=== PATIENT | male | born 2000 | race Caucasian/White ===

== ENCOUNTER 2021-12-30 10:00 | Day surgery (SDC) | payer OTHER, SELFPAY ==
[~2021-12-30 10:00] MED LIST: Dexamethasone 20 MG/5 ML VIAL ONE; Glycopyrrolate 0.2 MG/ML 5 ML SYRINGE ONE; Neostigmine Methylsulfate 3 MG/3 ML SYRINGE ONE; Ondansetron PF 4 MG/2 ML Vial ONE; PROPOFOL 200 MG/20 ML VIAL ONE; Rocuronium Bromide 10 MG/ML (10ML VIAL) ONE; Succinylcholine 200 MG/10 ml SYRINGE FS ONE; ePHEDrine 50 MG/ML VIAL ONE
[2021-12-30] MEDS ORDERED: Fentanyl 100 MCG/2 ML VIAL ONE (11:30)
[2021-12-30] MEDS ORDERED: Bupivacaine PF 0.5% 30 ML VIAL ONE (11:30)
[2021-12-30] MEDS ORDERED: Dexmedetomidine 200 MCG/2 ML VIAL ONE (11:30)
[2021-12-30] MEDS ORDERED: EPINEPHrine 1 MG/ML AMP ONE (11:30)
== END 2021-12-30 12:35 | disposition home or self-care (01) ==
LOC: SJX 10:00 → UNDOADMOB 11:44 → OBSVTOIN 11:44 → INTOOBSV 11:44 → SURG A 11:44 → SJX 11:44 → SURG A 11:44 → SJX 12:35 → UNDODISIN 12:35
PROVIDERS: ATTEND Specialist
PROC: 0DTJ4ZZ Resection of Appendix, Percutaneous Endoscopic Approach (ICD-10-PCS; principal; 2021-12-30)
DX: K35.30 Acute appendicitis with localized peritonitis, without perforation or gangrene (principal); K38.8 Other specified diseases of appendix
CPT/HCPCS: 88304; A4649; J0171; J1100; J2405; J2704; J3010; J3490; S0020